=== PATIENT | female | born 2000 | race Caucasian/White ===

== ENCOUNTER 2024-06-17 23:07 | Emergency (ER) | payer BC, SELFPAY ==
[2024-06-17 23:11] VITALS: BP 150/102
[2024-06-18 01:10] VITALS: BP 153/97
[2024-06-18 01:12] VITALS: BMI 48.2
[2024-06-18 01:21] LABS: Urine Albumin Trace (Neg - Trace); Urine Bilirubin Negative (Negative); Urine Character Slightly Cloudy (Clear); Urine Color Yellow; Urine Glucose Negative (Negative); Urine Ketone Negative (Negative); Urine Leukocyte 2+ (Negative); Urine Nitrite Negative (Negative); Urine Occult Blood 1+ (Negative); Urine Urobilinogen Negative (Neg - 1+)
[2024-06-18 01:25] LABS: HCG, Urine Qualitative Screen Positive
--- NOTE | 2024-06-18 01:28 | ED.GENMED ---
History of Present Illness
General
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
Source: patient
Exam Limitations: none
Time Seen by Provider: 06/18/24 01:07
History of Present Illness
History of Present Illness:
This is a 23 year old female that comes in with c/o lower abd cramping and clear yellow discharge. States that she had an IUD in place and this was removed about 1.5 years ago. States that she had a little spotting after this was removed and nothing
since. States that she is not sexually active. States that she is nauseated and lightheaded. Denies any fever, chills, chest pain, SOB, vomiting, diarrhea, headache, urinary burning.
Past History
Past History
ED Past Medical History: Hypercholesterolemia and Other (Iron Def anemia, )
ED Past Surgical History: Tonsilectomy and Other (Breast reconstruction)
Social History
Tobacco: Vaping
Alcohol: None
Personal: Single
Living: with family
Review of Systems
Review of Systems
All Other Systems: ROS reviewed and negative except as documented in HPI and ROS
Constitutional: Reports no symptoms; Denies fever or chills
EENT: Reports no symptoms
Respiratory: Reports no symptoms; Denies cough or trouble breathing
Cardiac: Reports no symptoms; Denies chest pain
ABD/GI: Reports abdominal pain (Cramping) and nausea; Denies vomiting or diarrhea
: Reports no symptoms; Denies dysuria, frequency or urgency
Musculoskeletal: Reports no symptoms
Skin: Reports no symptoms
Neurological: Reports other (Lighteaded); Denies dizzy or headache
Psychiatric: Reports no symptoms
Phy Exam
General Physical Exam
General Presentation: well appearing and no apparent distress
General age: appears stated age
General Skin: warm and dry
General Habitus: normal
General Mental: alert
General Hydration: appears well hydrated
ENT Exam
ENT Exam: TM's normal, pharynx normal and neck supple
Eye Exam
Eye Exam: EOMI
Cardiovascular Exam
Cardiovascular Exam: regular rate/rhythm, no edema, no murmur and normal peripheral pulses
Pulmonary Exam
Pulmonary Exam: lungs clear, no respiratory distress, no rales, chest non tender, no crackles, no rhonchi, no wheezing and no cough
Gastrointestinal Exam
Gastrointestinal Exam: normal bowel sounds, soft, no pulsatile mass, non distended and other (Obese, Hard palpable area in the lower abd)
Musculoskeletal Exam
Musculoskeletal Exam: full ROM and no edema
Skin Exam
Skin Exam: normal color, warm/dry, no rash and no petechia
Psychiatric Exam
Psychiatric Exam: normal mood/affect
Course
Orders/Labs/Results
Orders:
Orders
06/18/24 01:10
Test Result ONCE
06/18/24 01:12
HCG, Urine Qualitative Screen Urgent
Date Specimen was Collected: 06/18/24
Time Specimen was Collected: 01:10
Urinalysis Reflex To Culture Urgent
Date Specimen was Collected: 06/18/24
Time Specimen was Collected: 01:09
Urine Microscopic Reflex Cult Urgent
Urine Culture Urgent
DHRUV Source: U
Specimen Description:
Date Specimen was Collected: 06/18/24
Time Specimen was Collected: 01:09
06/18/24 01:30
US Limited Urgent
Comment: Unsure if first trimester
Reason For Exam: abd cramping.
06/18/24 01:54
Beta HCG Quantitative Urgent
Is this a screen?: No
Complete Blood Count/With Diff Urgent
Comprehensive Metabolic Panel Urgent
06/18/24 02:09
Acetaminophen [Tylenol] 1,000 mg .ROUTE .STK-MED ONE
06/18/24 02:13
Acetaminophen [Tylenol] 1,000 mg PO NOW STA
06/18/24 03:48
Fosfomycin [Monurol] 3 gm PO ONCE ONE
Abnormal Lab Results
06/18/24 06/18/24
01:12 01:54
WBC 11.6 H 10^3/uL
(4.8-10.8)
Hgb 11.9 L g/dL
(12.0-16.0)
Hct 35.4 L %
(37.0-47.0)
MCV 80.6 L fL
(81.0-99.0)
MPV 10.8 H fL
(7.4-10.4)
Abs Immat Gran (auto) 0.1 H 10^3/uL
(0-0.05)
Absolute Neuts (auto) 7.9 H 10^3/uL
(1.4-6.5)
Absolute Monos (auto) 0.7 H 10^3/uL
(0.1-0.6)
Chloride 108 H mmol/L
(98-107)
Carbon Dioxide 20 L mmol/L
(22-30)
Glucose 111 H mg/dl
(70-99)
Alkaline Phosphatase 230 H U/L
(38-126)
Ur Occult Blood Reflex 1+ A
(Negative)
Leukocyte Esterase Rfl 2+ A
(Negative)
Urine RBC 7-10 A /HPF
(0-2)
Urine WBC (Reflex) 21-25 A /HPF
(0-5)
Urine Bacteria (Reflex) Many A
(Negative)
06/18/24 01:54
06/18/24 01:54
WBC slightly elevated. H/h slightly low. carbon dioxide low. Glucose nonfasting. alk phos elevation. Urine positive for infection. HCG 1453.20
Vital Signs
Initial and Last Documented VS:
Initial Vital Signs
Temp Pulse Resp BP Pulse Ox
98.6 F 92 24 150/102 98
06/17/24 23:11 06/17/24 23:11 06/17/24 23:11 06/17/24 23:11 06/17/24 23:11
Last Documented Vital Signs
Temp Pulse Resp BP Pulse Ox
98.1 F 94 16 156/98 99
06/18/24 01:10 06/18/24 02:18 06/18/24 02:18 06/18/24 02:18 06/18/24 02:18
MDM/Problems Addressed
Differential Diagnosis Includes:
, PCOS
MDM/Problems Addressed:
This is a 23 year old female that comes in with c/o abd cramping and clear yellow discharge. States that this is more then what she is use to. Patient has not had a Period in 1.5 years since her IUD was removed.
Will get labs and US.
Back into see patient and mother. Explained that she is about 33-34 weeks . Patient also has a UTI which she will be treated for. Patient BP has been elevated this visit. Message sent to Dr. Chilel and will sent patient upstairs to OB
for further evaluation.
Chronic conditions affecting care:
NA
Acute Exacerbation and/or Progression of Chronic Illness:
NA
*Pulse Oximetry
Patient hypoxic: no
*EKG
Interpreted by ED Provider?: NA
Rate: EKG- N/A
*Latin American Studies Professor Interpretation
Rate: Latin American Studies Professor- N/A
*Critical Care Note
Total Time (30-74mins, 75-104mins- exclusive of procedures): Not Applicable
ED Attending Note
-
Portions of this chart may have been created with voice recognition software.� Occasional wrong word or��sound alike� substitutions may have occurred due to the inherent limitations of voice recognition software.
Discharge Plan
Departure
Patient Disposition: LDRP
Date of Disposition: 06/18/24
Time of Disposition: 04:00
Presentation/result/management discussed w/ accepting MD/DO:
Patient with high blood pressure during this ER visit?: Yes
Condition: Good
Covid-19: Not Applicable
Discharge Problem:
Urinary tract infection, Hypertension affecting in third trimester
Referrals:
NONE,* [Family Provider] -
Interventions
Interventions:
*Risk Screen - Suicide Last Done: 06/17/24 23:11
*General Assessment Last Done: 06/18/24 01:10
*Neglect/Abuse Screening Last Done: 06/17/24 23:11
*ED COVID-19 Vaccine History Last Done: 06/18/24 01:10
ED-Female Genitourinary Assessment Last Done: 06/18/24 01:13
Discharge Date and Time
Print Language: MEXICAN
[2024-06-18 01:34] LABS: Urine Bacteria Many (Negative); Urine Squamous Cell 26-30 /LPF (Few); Urine White Cell 21-25 /HPF (0-5)
[2024-06-18 02:06] LABS: % Basophils 0.3 % (0-2); % Eosinophils 1.1 % (0-6); % Immature Granulocytes 0.5 % (0-0.5); % Lymphocytes 24.7 % (20.5-51.1); % Monocytes 5.7 % (1.7-9.3); % Neutrophils 67.7 % (42.2-75.2); Absolute Eosinophils 0.1 10^3/uL (0-0.7); Absolute Immature Granulocytes 0.1 10^3/uL (0-0.05); Absolute Lymphocytes 2.9 10^3/uL (1.2-3.4); Absolute Monocytes 0.7 10^3/uL (0.1-0.6); Absolute Neutrophils 7.9 10^3/uL (1.4-6.5); Hematocrit 35.4 % (37.0-47.0); Hemoglobin 11.9 g/dL (12.0-16.0); Mean Corp Hgb Conc. 33.6 g/dL (33.0-37.0); Mean Corpuscular Hgb 27.1 pg (27.0-31.0); Mean Corpuscular Volume 80.6 fL (81.0-99.0); Mean Platelet Volume 10.8 fL (7.4-10.4); Nucleated Red Blood Cells % 0 %; Platelet Count 211 10^3/uL (130-400); Red Blood Cell Count 4.39 10^6/uL (4.20-5.40); Red Cell Dist. Width 14.1 % (11.5-14.5); White Blood Cell Count 11.6 10^3/uL (4.8-10.8)
[2024-06-18] MEDS: TYLENOL 1000 MG PO (02:13)
[2024-06-18 02:18] VITALS: BP 156/98
[2024-06-18 02:25] LABS: ALT (SGPT) 10 U/L (0-35); AST (SGOT) 32 U/L (14-36); Albumin 3.8 g/dl (3.5-5.0); Alkaline Phosphatase 230 U/L (38-126); Blood Urea Nitrogen 17 mg/dl (7-17); Calcium 9.9 mg/dl (8.4-10.2); Carbon Dioxide 20 mmol/L (22-30); Chloride 108 mmol/L (98-107); Estimated Creatinine Clearance > 125 ml/min; Glucose 111 mg/dl (70-99); Potassium 4.9 mmol/L (3.5-5.1); Sodium 136 mmol/L (135-145); Total Bilirubin 0.6 mg/dl (0.2-1.3); Total Protein 6.8 g/dl (6.3-8.2); eGFR > 60.00
[2024-06-18] MEDS: MONUROL 3 GM PO (03:59)
[2024-06-18 04:02] VITALS: BP 162/98
[2024-06-18 05:44] LABS: Protein/creatinine Ratio 0.1; Urine Protein 15 mg/dl
== END 2024-06-18 04:05 ==
LOC: EMR 23:07
PROVIDERS: Clinical Nurse Specialist Family Health; EMERGENCY PHYSICIAN Emergency Medicine
DX: O23.43 Unspecified infection of urinary tract in pregnancy, third trimester (principal); O10.913 Unspecified pre-existing hypertension complicating pregnancy, third trimester; O99.333 Smoking (tobacco) complicating pregnancy, third trimester; Z3A.34 34 weeks gestation of pregnancy; E78.00 Pure hypercholesterolemia, unspecified; D50.9 Iron deficiency anemia, unspecified; F17.290 Nicotine dependence, other tobacco product, uncomplicated
CPT/HCPCS: 99284; 76815; 80053; 81003; 81015; 81025; 82570; 84156; 84702; 85025; 87086

== ENCOUNTER 2024-06-18 04:14 | Inpatient (IN) | payer BC, SELFPAY ==
[2024-06-18 04:17] VITALS: BP 141/98; BMI 43.8
[2024-06-18] MEDS: MAGNESIUM SULFATE 100 IV (05:43)
[2024-06-18] MEDS: ANCEF 10 IV (05:43)
[2024-06-18] MEDS: LR 1000 IV ×2 (05:44→17:59)
[2024-06-18] MEDS: CELESTONE SOLUSPAN 2 MG IM ×2 (05:58→17:56)
[2024-06-18] MEDS: MAGNESIUM SULFATE 40 GRAM 1000 IV (06:09)
[2024-06-18 06:24] LABS: Amphetamines Negative (Negative); Barbiturates Negative (Negative); Benzodiazepines Negative (Negative); Buprenorphine Negative (Negative); Cocaine Negative (Negative); Marijuana Negative (Negative); Methadone Negative (Negative); Methamphetamines Negative (Negative); Opiates Negative (Negative); Phencyclidine Negative (Negative); Tricyclic Antidepressants Negative (Negative)
[2024-06-18 06:26] LABS: TSH Reflex To Free T4 4.52 uIU/ml (0.47-4.68)
[2024-06-18] MEDS: SUBLIMAZE 100 MCG EPIDURAL (07:03)
[2024-06-18] MEDS: FENTANYL/BUPIVACAINE 100 EPIDURAL ×3 (07:04→21:16)
[2024-06-18] MEDS: ZITHROMAX 1000 MG PO (08:15)
--- NOTE | 2024-06-18 11:00 | CON.NEO ---
Consultation
-
Date/Time Consultation Requested: 06/18/2024 @ 0730
Date/Time Consultation Performed: 06/18/2024 @ 0930
Requesting Provider: Getachew
Performing Provider: Rajan
Reason for Consultation: labor
Consultation - Neonatology
Maternal Labs
Blood Type: O Positive
Antibody Screen: Negative
RPR: Unknown
Rubella: Unknown
Hep B S Ag: Unknown
Hep C: Unknown
HIV: Unknown
Group B Strep: Unknown
Chlamydia/GC: Unavailable
Consult
Mother presented to ED for abdominal pain. Diagnosed with UTI. And previously not diagnosed .
Mother without any care.
Maternal medical history significant for: obesity, possible gestational HTN, history of breast augmentation
Mother with history of irregular menstrual cycles
Infant EFW was 2268 g - estimated gestational age of 33 + 6 weeks by US.
Mother received one dose of betamethasone on 06/18/2024
Was started on magnesium, and discontinued once membranes were ruptured.
On Ancef and Azithromycin
Maternal labs are pending.
06/18 - UDS negative.
Maternal mother present for support. FOB not involved.
Points discussed at consult:
- Management at delivery including the possibility of CPAP/intubation/surfactant discussed
- Respiratory: RDS possibility with possibility of worsening for 24-48 hrs, management including CPAP/surfactant/ventilator support may be required
- Nutrition: Hypoglycemia, need for IV fluids, gradual feed advance, Gavage feeding, importance of colostrum feeding, initiation of expression of colostrum within 3-4 hours, availability of donor milk, safety fo donor milk etc. were discussed.
Mother may pump and provide milk, was not interested in . Provided verbal consent for donor milk.
- Procedures: Intubation, CPAP, IV placement, blood tests, umbilical arterial or venous lines, gavage feedings were discussed
- CVS: possibility of PDA not discussed in detail at this time
- MARKING CLERK: Rare possibility of IVH and need for head US, grading of IVH and senior care effects of Grade III/IV although extremely rare at >32 weeks were discussed
- Jaundice possibility and need for phototherapy discussed
- Family Centered Care: Discussed FCC with emphasis on parental participation during sign off and during management rounds and is encouraged. Availability of mateusz eyes camera also discussed
Mom and Maternal GM were given the opportunity to ask questions throughout and open invitation to call if any questions come as they absorb all the information given so far.
Face to Face Time
Total Bzln-nr-Xalk Time (in Minutes): 40
--- NOTE | 2024-06-18 11:04 | CM ---
CM consulted for adoption and maternal baby resources
Bedside meeting with pt and her mother/Janna per their request
Pt is currently 34 weeks and did not know she was -currently in labor
Pt resides with her mother and 17 y/o highschool sister in a 2[address] with 2 SIMONE
Pt has a working nebulizer at home
She works part-time as a casino cashier at [employer]
Pt recently moved to [place] from [place] earlier in the year
At age 16, her aunt/ Dorie Cervantes was her legal guardian and had been residing in [place] with her aunt
She is currently on her aunt's health insurance plan as a dependent
Notes bio father of baby is not involved
Pt currently does not have a PCP
Pt and her mother are interested adoption info
Also requesting community resources should adoption not be elected (WIC, day care help, health insurance for baby, food stamps, supplies, etc)
Notes she has no supplies at home and will need financial help with infant's care if no plan for adoption
Explained role of CM to both pt and her mother
CM will continue to follow and provide resources info to pt as well as assist with adoption coordinate if needed
[2024-06-18] MEDS: ANCEF 5 IV ×2 (12:09→19:53)
[2024-06-19] MEDS: MAGNESIUM SULFATE 40 GRAM IV (02:11)
[2024-06-19] MEDS: ANCEF 5 IV (04:07)
[2024-06-19] MEDS: FENTANYL/BUPIVACAINE 100 EPIDURAL (05:11)
[2024-06-19] MEDS: PITOCIN 30 UNITS/NSS 500 ML IV (07:41)
[2024-06-19 11:39] LABS: Cord ABG Comment CORD BLOOD
[2024-06-19 11:40] LABS: B.E. Cord ABG -8.6 mMOL/L; O2 Saturation % Cord ABG 31.1 %; PCO2 Cord ABG 59 mmHg; PO2 Cord ABG 20 mmHg; pH Cord ABG 7.16
[2024-06-19 11:45] LABS: B.E. Cord ABG -11.4 mMOL/L; HCO3 Cord ABG 21.1 mmol/L; O2 Saturation % Cord ABG 12.9 %; PCO2 Cord ABG 78 mmHg; PO2 Cord ABG 11 mmHg; pH Cord ABG 7.04
[2024-06-19 19:32] LABS: Hepatitis C Antibody Negative (Negative)
[2024-06-19 19:33] LABS: Rubella Positive
[2024-06-19 21:09] LABS: Hepatitis B Surface Antigen Negative (Negative)
[2024-06-20 07:38] LABS: Hematocrit 29.5 % (37.0-47.0); Hemoglobin 9.8 g/dL (12.0-16.0)
--- NOTE | 2024-06-20 10:33 | CM ---
Addendum entered by Dionne Roth 06/20/24 16:37:
Breast pump ordered through [employer] - confirmed with Gayla - pump to be delivered
Referral made to Maternal Child VNA program
CM available for support ans/or discharge needs
Original Note:
CM met with new mother Ligia at bedside
Mom has named her Bjorn Chawla - currently in NICU, delivered at 34 weeks gestation
Mom reports the father of baby is not involved
Currently mom is not planning for adoption
Mom reports she lives at listed address. Phone number [phone] - best contact number. Currently living with her mother and sibling
Mom acknowledges she does not have supplies for as she was unaware of . Mom reports that her aunt has been supportive and is planning to purchase a car seat and other supplies for infant.
Mom requesting info for the CHIP program/insurance, the WIC program and will need a breast pump
Peds - mom currently looking into providers for
PP visit - Mom plans to follow up at [facility]
CM gave mom info for applying to the WIC program and CHIP and medicaid resources
Discussed the Maternal Child Health VNA program - will refer to program
[2024-06-20 12:58] LABS: HIV Combo Negative (Negative)
[2024-06-20 13:58] LABS: Syphilis/T. pallidum Ab Reflex Negative (Negative)
[2024-06-20] MEDS: FEOSOL 325 MG PO (16:22)
[2024-06-21] MEDS: FEOSOL 325 MG PO (08:34)
[2024-06-21] MEDS: ADACEL 0.5 ML IM (12:44)
--- NOTE | 2024-06-21 14:57 | CM ---
CM met with mother and baby in nursery. CM provided [facility] information, along with [place] Application for assistance with childcare, all questions answered. Mother reports no other needs/concerns to CM at this
time. Mother reports her mother and sister helped her apply for CHIP. CM will continue to follow for all discharge planning needs.
Plan; CM will continue to be available for support/mother/baby needs.
== END 2024-06-21 16:20 | disposition home or self-care (01) | DRG 807 ==
LOC: LDRP 04:14
PROVIDERS: Obstetrics & Gynecology; ADMITTING PHYSICIAN Obstetrics & Gynecology
PROC: 0HQ9XZZ Repair Perineum Skin, External Approach (ICD-10-PCS; 2024-06-19)
PROC: 10E0XZZ Delivery of Products of Conception, External Approach (ICD-10-PCS; 2024-06-19)
DX: O42.013 Preterm premature rupture of membranes, onset of labor within 24 hours of rupture, third trimester (principal); Z37.0 Single live birth; O13.4 Gestational [pregnancy-induced] hypertension without significant proteinuria, complicating childbirth; O69.81X0 Labor and delivery complicated by cord around neck, without compression, not applicable or unspecified; O70.0 First degree perineal laceration during delivery; O99.214 Obesity complicating childbirth; Z3A.33 33 weeks gestation of pregnancy
CPT/HCPCS: 88307; 80306; 82803; 84443; 85014; 85018; 86762; 86780; 86803; 86850; 86900; 86901; 87070; 87340; 87389; 87491; 87591; 90715